=== PATIENT | male | born 1965 | race Asian ===

== ENCOUNTER → 2019-04-10 08:21 | Outpatient (CLI) | payer MEDICAID | END | disposition home or self-care (01) | LOC: D.MRI 08:21 | PROVIDERS: ATTEND Orthopaedic Surgery | DX: M75.01 Adhesive capsulitis of right shoulder (principal) ==

== ENCOUNTER 2019-06-07 05:27 | Day surgery (SDC) | payer BC ==
[~2019-06-07] VITALS: Ht 172.7 cm; Wt 63.5 kg
[~2019-06-07 05:27] MED LIST: ZETIA10 MG PO
[2019-06-07 06:10] VITALS: BP 140/88; Ht 172.7 cm; Wt 63.5 kg
[2019-06-07] MEDS ORDERED: HYDROCODON-ACE1 EA10 PO (08:46)
--- NOTE | 2019-06-07 11:26 | NUR ---
1000-FULL LIQUID TRAY TO ROOM. ASSISTED PT TO RESTROOM, ABLE TO AMBULATE WITH SLOW STEADY GAIT. VOIDED WITHOUT COMPLICATIONS. VSS. DENIES PAIN. ABLE TO WIGGLE DIGITS. CAP REFILL WNL. SHOULDER DRESSING CDI. SLING IN PLACE.
--- NOTE | 2019-06-07 11:27 | NUR ---
1045-TOLERATED TRAY. DENIES PAIN.VSS. REMOVED IV FROM LEFT WRIST WITH CATH INTACT,DISPOSED INTO SHARPS,COVERED WITH GUAZE,SECURED WITH MEDIPORE TAPE. REVIEWED POST OPERATIVE INSTRUCTIONS. VERBALIZED UNDERSTANDING. ASSISTED IN DRESSING.
--- NOTE | 2019-06-07 11:29 | NUR ---
1055-CONTACTED TO PICK HIM UP
--- NOTE | 2019-06-07 11:29 | NUR ---
1120-ESCORTED OUT VIA W/C WITH SPOUSE AWAITING TO DRIVE HOME. DRESSING CDI. DENIES PAIN. CAP REFILL WNL. FINGERS WARM TO TOUCH. SLING IN PLACE. HAS ICE PACK FOR HOME USE.
--- NOTE | 2019-06-11 11:32 | OP ---
PATIENT NAME: JUICE ARCHER MEDICAL RECORD: [id number] :61 LOCATION:.FORMERLY [facility] ADMISSION DATE: SURGEON: KURT TORRES MD DATE OF OPERATION: 06/07/2019 PREOPERATIVE DIAGNOSES: 1. Rotator cuff tear of the right shoulder. 2. Impingement syndrome of the right shoulder. 3. Adhesive capsulitis of the right shoulder. POSTOPERATIVE DIAGNOSES: 1. Rotator cuff tear of the right shoulder. 2. Impingement syndrome of the right shoulder. 3. Adhesive capsulitis of the right shoulder. PROCEDURE: 1. Arthroscopic rotator cuff repair. 2. Arthroscopic distal clavicle excision done through separate incision - 1 cm. 3. Arthroscopic subacromial decompression, acromioplasty and bursectomy. 4. Manipulation under anesthesia. SURGEON: Kurt Torres MD EXTERMINATION INSPECTOR: None. OPERATIVE SUMMARY IN DETAIL: After obtaining the appropriate preoperative orthopedic surgery consent as well as anesthetic consultation, evaluation and clearance, the patient was brought to the operating room and placed on the operating table in a supine position. After general laryngeal mask was administered, the patient was placed in a left lateral decubitus position. All pressure points were well padded to include down leg peroneal pad as well as axillary roll. The patient was held firmly to the operating table using the vacuum pack suction system. At this point, the appropriate timeout was taken and agreed upon by all. The shoulder was then manipulated, first in abduction followed by external rotation, internal rotation, forward flexion and then extension. After getting an excellent release in all planes, the patient's right upper extremity and shoulder were then prepped and draped in routine sterile fashion. The arm was held in the [employer] traction boom at 30 degrees of forward flexion, 30 degrees of abduction, and 10 pounds of traction laterally. Arthroscopy was established in the glenohumeral joint from the posterior portal. Anterior portal was established in the anterior safe interval. Diagnostic arthroscopy showed the patient to have a single area of full thickness rotator cuff tearing. Mild labral fraying was noted after all the blood from the manipulation had been completely evacuated from the joint. Having completed this, attention was then returned to the subacromial space. While on subacromial space, the accessory lateral portal, the [place] tissue ablation system was utilized to denude the undersurface of the acromion of all soft tissue elements and release the coracoacromial ligament. A 5-0 barrel bur was used to perform acromioplasty at the level of acromioclavicular joint. Then, through a separate anterior portal arthroscopy, arthroscopic distal clavicle was completed with 1 cm of the distal clavicle excised from the area of arthrosis of the distal clavicle. Lastly, the area of reapproximation of the small rotator cuff tear was decorticated and then a single inverted mattress suture was placed and anchored laterally with a single 4.75 SwiveLock from [employer]. Having completed this, arthroscopy portals were closed in routine interrupted fashion OPERATIVE REPORT [id number] using 4-0 Prolene. Sterile dressings were applied. The patient was awakened, LMA removed, and taken to recovery room in stable condition. All final needle and sponge counts were correct. TRANSINT:[id number] Voice Confirmation ID: [id number] DOCUMENT ID: [id number] BRIAN ALEJANDRA, KURT BORDEN at 1132 CC: [id number] DICTATION DATE: 06/07/19 1326 GUIDE VISITOR: 06/07/19 1546 [facility] 06/07/19 [facility] [address] [place] [address]
== END 2019-06-07 11:20 | disposition home or self-care (01) ==
LOC: D.OPS 05:27
PROVIDERS: ATTEND Orthopaedic Surgery
DX: M75.101 Unspecified rotator cuff tear or rupture of right shoulder, not specified as traumatic (principal); M75.41 Impingement syndrome of right shoulder; M75.01 Adhesive capsulitis of right shoulder; S43.431A Superior glenoid labrum lesion of right shoulder, initial encounter; X58.XXXA Exposure to other specified factors, initial encounter